=== PATIENT | male | born 1945 | race Caucasian/White ===

== ENCOUNTER 2016-04-05 19:45 | Inpatient (IN) | payer OTHER, MEDICARE ==
[~2016-04-05] VITALS: Ht 172.7 cm; Wt 81.6 kg
--- NOTE | 2016-04-05 19:53 | NUR ---
70 YEAR OLD MALE BIBA FROM HOME C/O CHEST PAIN. PER EMS PT HAS HISTORY OF A FIB, APPEARS TO BE IN NSR AT THIS TIME. PT RECEIVED 1 ASPIRIN 325MG AND 1 NITRO SL WITH GOOD EFFECT. PT DENIES CHEST PAIN AT THIS TIME.
[2016-04-05] MEDS ORDERED: PRILOSEC OTC20 M1 PO (20:32)
[2016-04-05] MEDS ORDERED: LISINOPRIL2.5 M1 PO (20:33)
[2016-04-05] MEDS ORDERED: LIPITOR80 M1 PO (20:34)
[2016-04-05] MEDS ORDERED: AMARYL4 M1 PO (20:34)
[2016-04-05] MEDS ORDERED: FLOMAX0.4 M1 PO (20:35)
[2016-04-05] MEDS ORDERED: ACTOS30 M1 PO (20:35)
[2016-04-05] MEDS ORDERED: COUMADIN5 M2 PO (20:40)
[2016-04-05] MEDS ORDERED: COUMADIN10 M1 PO (20:40)
[2016-04-05 20:41] LABS: ABSOLUTE BASOPHIL COUNT 0 /CUMM (0.0-0.2); ABSOLUTE EOSINOPHIL COUNT 0.2 /CUMM (0.0-0.7); ABSOLUTE GRANULOCYTE CT 3.8 /CUMM (1.4-6.5); ABSOLUTE LYMPH COUNT 2.8 /CUMM (1.2-3.4); ABSOLUTE MONOCYTE COUNT 0.6 /CUMM (0.10-0.60); BASOPHIL % 0.6 % (0.0-2.0); EOSINOPHIL % 2.9 % (0-5); HEMATOCRIT 39.4 % (42-52); MEAN CORPUSCULAR HGB 29.7 PG (27.0-31.0); MEAN CORPUSCULAR VOLUME 87.2 FL (80.0-94.0); PLATELET COUNT 181 /CUMM (130-400); RBC DISTRIBUTION WIDTH 14.1 % (11.5-14.5); RED BLOOD CELL CT 4.52 /CUMM (4.70-6.10); WHITE BLOOD CELL COUNT 7.4 /CUMM (4.8-10.8)
--- NOTE | 2016-04-05 20:42 | ED CARDIAC/CP/PALPITATIONS ---
History of Present Illness General Chief Complaint: General Adult Stated Complaint: BIBA, CHEST DISCOMFORT Source: patient, old records Exam Limitations: no limitations Allergies Coded Allergies: Sulfa (Sulfonamide Antibiotics) (PER PT WAS TOLD A KID 04/05/16) Reconcile Medications Atorvastatin Calcium (Lipitor) 80 MG TABLET 1 TAB PO DAILY CHOLESTEROL ( Reported) Glimepiride (Amaryl) 4 MG TABLET 1 TAB PO BID DM (Reported) Lisinopril 2.5 MG TABLET 1 TAB PO DAILY BP (Reported) Omeprazole Magnesium (Prilosec Otc) 20 MG TABLET.DR 1 TAB PO DAILY GI ( Reported) Pioglitazone HCl (Actos) 30 MG TABLET 1 TAB PO DAILY DM (Reported) Tamsulosin HCl (Flomax) 0.4 MG CAP.ER.24H 1 CAP PO DAILY PROSTATE (Reported) Warfarin Sodium (Coumadin) 5 MG TABLET 1 TAB PO AD BLOOD THINNER (Reported) Warfarin Sodium (Coumadin) 10 MG TABLET 1 TAB PO AD BLOOD THINNER (Reported) Triage Note: 70 YEAR OLD MALE BIBA FROM HOME C/O CHEST PAIN. PER EMS PT HAS HISTORY OF A FIB, APPEARS TO BE IN NSR AT THIS TIME. PT RECEIVED 1 ASPIRIN 325MG AND 1 NITRO SL WITH GOOD EFFECT. PT DENIES CHEST PAIN AT THIS TIME. Triage Nurses Notes Reviewed? yes HPI: 70/M with PMH of A.fib, CAD, HLD, HTN, T2DM, GERD, sarcoidosis, and abdominal aortic aneurysm, thyroid nodule, vascular disease and Bilateral renal artery stenting who presented to [place] ED complaining of 10/10, sharp, stabbing, continuous left-sided chest pain that started 2 hours ago and getting worse. Pain is radiating to the left arm. Pain is associated with lightheadedness and dyspnea. Patient denies history of similar pain in the past. Patient stated that his pain went down to 0/10 after he received the nitroglycerin. Patient denies cough, fever, chills, palpitation, nausea, vomiting, or abdominal pain. Patient has a bag of his medication which is not including any rate control medication. 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 ([facility] Vital Signs & Intake/Output Vital Signs & Intake/Output Vital Signs Date Time Temp Pulse Resp B/P Pulse O2 O2 Flow FiO2 Ox Delivery Rate 04/06 0200 97 Nasal 2.0L Cannula 04/06 0157 07 Nasal 2.0L Cannula 04/06 0113 96.6 82 18 134/77 95 Nasal 2.0L Cannula 04/06 0100 97.1 81 20 120/70 97 Nasal 2.0L Cannula 04/05 2338 96.3 80 18 141/75 97 Room Air 04/05 2227 98.4 83 18 140/74 04/05 2212 98.4 83 18 136/74 96 Room Air 04/05 1951 98.8 97 18 116/79 95 Room Air ED Intake and Output 04/06 0000 04/05 1200 Intake Total 1000 Output Total Balance 1000 Intake, IV 1000 Past History Travel History Traveled to [place] past 21 day No Psychosocial History Who do you live with Patient/Self Services at Home None What is your primary language Hebrew (DAYLIN ATKINSON,ISCTIL) Medical History Any Pertinent Medical History? see below for history Cardiovascular: AFIB Endocrine: diabetes Surgical History Surgical History: non-contributory Family History Hx Contributory? No (ASHANTI DOMINGUEZ MD) Review of Systems Review of Systems Constitutional: Reports: see HPI. Cardiovascular: Reports: chest pain. Denies: peripheral edema. (DAYLIN ATKINSON,ISMAIL) Review of Systems Constitutional: Reports: no symptoms. EENTM: Reports: no symptoms. Respiratory: Reports: no symptoms. Cardiovascular: Reports: see HPI. GI: Reports: no symptoms. Genitourinary: Reports: no symptoms. Musculoskeletal: Reports: no symptoms. Skin: Reports: no symptoms. Neurological/Psychological: Reports: no symptoms. Hematologic/Endocrine: Reports: no symptoms. Immunologic/Allergic: Reports: no symptoms. All Other Systems: Reviewed and Negative (ASHANTI DOMINGUEZ MD) Physical Exam Physical Exam General Appearance: well developed/nourished, no apparent distress, alert, awake Head: atraumatic, normal appearance Eyes: Bilateral: normal appearance, PERRL, EOMI. Neck: normal inspection Respiratory: normal breath sounds, chest non-tender, no respiratory distress, lungs clear Cardiovascular: regular rate/rhythm Gastrointestinal: normal bowel sounds, soft, non-tender (DAYLIN ATKINSON,ISMAIL) Physical Exam Ears, Nose, Throat: normal pharynx, normal ENT inspection Peripheral Pulses: 4+ carotid (R), 4+ carotid (L) Back: normal inspection, normal range of motion Extremities: normal inspection, normal capillary refill, normal range of motion, no edema Neurologic/Psych: no motor/sensory deficits, awake, alert, oriented x 3, normal gait, normal mood/affect Reflexes: 2+: bicep (R), bicep (L). Skin: intact, normal color, warm/dry Lymphatic: no anterior cervical turner Core Measures ACS in differential dx? Yes Severe Sepsis Present: No Septic Shock Present: No (ANGELICA ATKINSON,ASHANTI) Progress Differential Diagnosis: atrial fibrillation, pneumonia, ACS Initial ED EKG: no ST T wave changes, P WAVE IS WIDER THAN 3 SMALL BOXES., VA INTERVAL PROLONGED WITH NO BEAT DROPS (DAYLIN ATKINSON,ISCTIL) Plan of Care: Orders Procedure Date/time Status Heart Healthy Diet 04/06 B Active TROPONIN LEVEL 04/06 1000 Active EKG 04/06 1000 Active ECHOCARDIOGRAM 04/06 0800 Active TROPONIN LEVEL 04/06 0400 Active PROTHROMBIN TIME 04/06 0400 Active PHOSPHORUS 04/06 0400 Active MAGNESIUM 04/06 0400 Active LIPID PANEL 04/06 0400 Active CBC WITHOUT DIFFERENTIAL 04/06 0400 Active BASIC ELECTROLYTES PLUS BUN&CR 04/06 0400 Active EKG 04/06 0400 Active Vital Signs 04/06 0127 Active Teach/Educate 04/06 012 Active Nutritional Intake, Monitor 04/06 126 Active Isolation 04/06 012 Active Intake & Output 04/06 012 Active Patient Care Conference 04/06 0127 Active Activity/Ambulation 04/06 0127 Active Pathway - chart 04/06 0011 Active Pathway - chart 04/06 0009 Active House Staff 04/06 0009 Active Patient Data 04/06 0009 Active Code Status 04/06 0009 Active Lab Add-on Test 04/06 UNK Active VTE Mechanical Prophylaxis 04/06 UNK Active Telemetry/Quality Assurance Assessor 04/06 UNK Complete Patient Data 04/05 2214 Active OXYGEN SETUP (GEN) 04/05 2137 Active Saline Lock 04/05 2137 Active Admit to inpatient 04/05 2137 Active Vital Signs 04/05 2137 Active Activity/Ambulation 04/05 2137 Active Code Status 04/05 2137 Complete EKG 04/05 2045 Active GLYCOSYLATED HGB 04/05 2030 Active Telemetry/Quality Assurance Assessor 04/05 2024 Active TSH REFLEX 04/05 2024 Complete TROPONIN LEVEL 01/12 2025 Complete PROTHROMBIN TIME 04/05 2024 Complete COMPREHENSIVE METABOLIC PANEL 04/05 2024 Complete CBC WITHOUT DIFFERENTIAL 04/05 2024 Complete Intake & Output 04/05 1952 Active Current Medications Sig/Claudia Start time Last Medication Dose Stop Time Status Admin Atorvastatin Calcium 80 MG DAILY 04/06 1000 AC (Lipitor) Lisinopril 2.5 MG DAILY 04/06 1000 AC (Prinivil) Tamsulosin HCl 0.4 MG 0830 04/06 0830 AC (Flomax) Omeprazole 20 MG DAILY AC 04/06 0700 AC (Prilosec) Laboratory Tests 04/05/162030: Hemoglobin A1c Pending 04/05/162030: Anion Gap 14, Estimated GFR > 60, BUN/Creatinine Ratio 18.9, Glucose 290 H, Calcium 8.5, Total Bilirubin 0.6, AST 39, ALT 44, Alkaline Phosphatase 61, Troponin I < 0.01, Total Protein 6.3, Albumin 3.3 L, Globulin 3.0, Albumin/ Globulin Ratio 1.1, TSH &T3 &Free T4 Intrp 3.160, PT 27.2 H, INR 2.62 H, CBC w Diff NO MAN DIFF REQ, RBC 4.52 L, MCV 87.2, MCH 29.7, RDW 14.1, MPV 9.0, Gran % 51.0, Lymphocytes % 37.6, Monocytes % 7.9, Eosinophils % 2.9, Basophils % 0.6, Absolute Granulocytes 3.8, Absolute Lymphocytes 2.8, Absolute Monocytes 0.6, Absolute Eosinophils 0.2, Absolute Basophils 0, PUBS MCHC 34.0 Microbiology 04/06 0129 UPPER RESP: Surveillance Culture - CAN Cancelled: Cancelled via OE: PT REFUSED Patient has a history of atrial fibrillation, hypertension, hyperlipidemia, diabetes. Patient is a high risk for acute coronary syndrome. His symptoms started while he was at rest and responded well to nitroglycerin. Her first EKG and troponins was within normal limits however acute coronary syndrome needs to be ruled out with serial EKG and troponin. Patient reported feeling dizzy and short of breath with the pain, so different arrhythmia including A. fib need to be ruled out by monitoring the heartrate. Patient is on warfarin and his INR is in the therapeutic range it makes pulmonary embolism unlikely. (DAYLIN ATKINSON,ISCTIL) Diagnostic Imaging: Viewed by Me: Radiology Read. Discussed w/RAD: Radiology Read. CXR Impression: no acute abnormality, no infiltrates (ASHANTI DOMINGUEZ MD) Departure Departure Referrals: JULY LONDONO MD (PCP/Family) Departure Forms: Customer Survey General Discharge Information (DAYLIN ATKINSON,[facility]) Departure Time of Disposition: 2138 Disposition: STILL A PATIENT Condition: Stable Clinical Impression Primary Impression: ACS (acute coronary syndrome) Secondary Impressions: A-fib Qualifiers: Atrial fibrillation type: chronic Qualified Code: I48.2 - Chronic atrial fibrillation Admission Note Spoke With: JACQUELINE RACHEL MD Documentation of Exam: Documentation of any treatments & extenuating circumstances including Concerns Regarding Discharge (functional status, medication knowledge or non-compliance, living conditions, etc.) that warrant an admission rather than observation: Cardiac monitoring serial EKG serial lab exam medication adjustment cardiology evaluation continuing care discharge planning Resident Co-Sign Statement Statement: ED Attending supervision documentation- x I saw and evaluated the patient. I have also reviewed all the pertinent lab results and diagnostic results. I agree with the findings and the plan of care as documented in the Resident's documentation. [] I have reviewed the ED Record and agree with the Resident's documentation. [] Additions or exceptions (if any) to the Resident's note and plan are summarized below: [] (ASHANTI DOMINGUEZ MD) Critical Care Note Critical Care Note Critical Care Time: non-applicable (ASHANTI DOMINGUEZ MD)
[2016-04-05 20:46] LABS: PT 27.2 SEC (9.4-12.5)
--- NOTE | 2016-04-05 21:34 | RADIOLOGY REPORT ---
EXAMINATION: XR PORTABLE CHEST CLINICAL INFORMATION: 70-year-old male patient with chest pain. History of sarcoidosis. COMPARISON: Chest x-ray performed on 04/29/2014. TECHNIQUE: AP semierect view of the chest. FINDINGS: The heart is normal in size considering the AP projection. Lung volumes are low particularly in the right chest with slight elevation of the right hemidiaphragm. There is consequently platelike linear atelectasis of the right lower lobe. There is no convincing evidence of airspace disease or pleural effusion. As on the previous exam, there is no significant lymphadenopathy. IMPRESSION: No consolidating pneumonia.
--- NOTE | 2016-04-05 22:27 | History & Physical ---
SUZANNA ATKINSON,[facility] [place] 04/05/16 2225: General Information and HPI MD Statement: I have seen and personally examined AJITH THURMAN and documented this H&P. The patient is a 70 year old M who presented with a patient stated chief complaint of chest pain. Source of Information: patient, old records Exam Limitations: no limitations History of Present Illness: 70 y/o M with PMHx of AAA s/p EVAR, paroxysmal atrial fibrillation, CAD s/p stent placement, sarcoidosis, HLD, HTN and PVD who presents to the ED with acute onset sharp chest pain. Pain started 5-6 hours prior to current presentation while patient was sitting in recliner watching TV. It is located on the left side of his chest with radiation down his left arm, "stabbing in quality" and 9- 10 out of 10 in terms of severity. He had 4 episodes, each lasting about 5 seconds, at home which prompted him to call EMS. En route to the ED, he received 1 dose of aspirin and sublingual nitroglycerin. He had a single episode of chest pain in the ED, which was milder compared to the previous episodes, with the pain rating only 5 out of 10. Between the episodes, he feels "heaviness" in his chest. He denies shortness of breath, palpitations, nausea, diaphoresis associated with the episodes. Patient denies prior episodes of chest pain. Patient endorses dyspnea after going up 1-2 stairs which he attributes to sarcoidosis. He denies neck pain, abdominal pain, leg swelling, orthopnea or PND. Allergies/Medications Allergies: Coded Allergies: Sulfa (Sulfonamide Antibiotics) (PER PT WAS TOLD A KID 04/05/16) Home Med list Aspirin (Aspirin*) 81 MG TAB.CHEW 1 TAB PO DAILY HEART Atorvastatin Calcium (Lipitor) 80 MG TABLET 1 TAB PO DAILY CHOLESTEROL ( Reported) Omeprazole Magnesium (Prilosec Otc) 20 MG TABLET.DR 1 TAB PO DAILY GI ( Reported) Tamsulosin HCl (Flomax) 0.4 MG CAP.ER.24H 1 CAP PO DAILY PROSTATE (Reported) Past History Travel History Traveled to [place] past 21 day No Medical History Cardiovascular: aortic aneurysm, AFIB, CAD, hypertension, hyperlipidemia, PVD Respiratory: sarcoidosis Endocrine: diabetes Surgical History Surgical History: cardiac stent placement, EVAR Past Family/Social History Psychosocial History Services at Home: None Smoking Status: Former Smoker (Quit Smoking in Early ) ETOH Use: denies use Illicit Drug Use: denies illicit drug use Living Will? yes Functional Ability Ambulation: independent Employment History Employment Retired Profession/Employer Worked in [employer] Review of Systems Review of Systems Constitutional: Denies: chills, fever. EENTM: Denies: blurred vision. Cardiovascular: Reports: chest pain. Denies: orthopena, palpitations, peripheral edema. Respiratory: Denies: short of breath. GI: Denies: abdominal pain, nausea, vomiting. Genitourinary: Reports: no symptoms. Musculoskeletal: Reports: no symptoms. Skin: Reports: no symptoms. Neurological/Psychological: Reports: no symptoms. Hematologic/Endocrine: Reports: no symptoms. Immunologic/Allergic: Reports: no symptoms. All Other Systems: Reviewed and Negative Exam & Diagnostic Data Last 24 Hrs of Vital Signs/I&O Vital Signs Date Time Temp Pulse Resp B/P Pulse O2 O2 Flow FiO2 Ox Delivery Rate 04/05 2338 96.3 80 18 141/75 97 Room Air 04/05 2227 98.4 83 18 140/74 04/05 2212 98.4 83 18 136/74 96 Room Air 04/05 1951 98.8 97 18 116/79 95 Room Air Intake & Output 04/06 0800 04/06 0000 04/05 1600 Intake Total 1000 Output Total Balance 1000 Intake, IV 1000 Physical Exam General Appearance Alert, Oriented X3, No Acute Distress HEENT Mucous Membr. moist/pink, Oropharynx Clear Without Erythema or Exudates, No Conjunctival Pallor, Black Macule on the Right Eye Lower Palpebral Conjunctiva (Chronic Per Patient) Neck No JVD Cardiovascular Regular Rate, Normal S1, Normal S2, No Murmurs, Gallops, Rubs Lungs Clear to Auscultation, Normal Air Movement Abdomen Soft, No Tenderness, Positive Bowel Sounds Neurological No Gross Focal Deficits Noted Extremities No Clubbing, No Cyanosis, No Edema Vascular DP Pulses 2+ Bilaterally Last 24 Hrs of Labs/Luis Felipe: Laboratory Tests 04/05/162030: Anion Gap 14, Estimated GFR > 60, BUN/Creatinine Ratio 18.9, Glucose 290 H, Calcium 8.5, Total Bilirubin 0.6, AST 39, ALT 44, Alkaline Phosphatase 61, Troponin I < 0.01, Total Protein 6.3, Albumin 3.3 L, Globulin 3.0, Albumin/ Globulin Ratio 1.1, TSH &T3 &Free T4 Intrp 3.160, PT 27.2 H, INR 2.62 H, CBC w Diff NO MAN DIFF REQ, RBC 4.52 L, MCV 87.2, MCH 29.7, RDW 14.1, MPV 9.0, Gran % 51.0, Lymphocytes % 37.6, Monocytes % 7.9, Eosinophils % 2.9, Basophils % 0.6, Absolute Granulocytes 3.8, Absolute Lymphocytes 2.8, Absolute Monocytes 0.6, Absolute Eosinophils 0.2, Absolute Basophils 0, PUBS MCHC 34.0 Diagnostic Data EKG Results NSR HR 87 1st degree AV block NH [address]-T wave abnormalities CXR Results No consolidating pneumonia. Other Results CTA CHEST - AORTIC DISSECTION: 1. No evidence of aortic dissection. 2. No acute pulmonary findings. Multiple chronic findings including emphysema and scarring. Stable pulmonary nodules. 3. Redemonstration of a nodule in the right lobe of the thyroid gland. If not previously performed, this could be further evaluated by ultrasound. Assessment/Plan Assessment: 70 y/o M with PMHx of AAA s/p EVAR, paroxysmal atrial fibrillation and CAD s/p stent placement who presents with acute onset chest pain. #Chest pain: Most likely unstable angina given his history of CAD. Initial set of troponins negative and EKG with no ST-T wave abnormalities. Concerning for vascular pathology including aortic dissection given history of AAA but CTA Chest was unremarkable. S/p 5 mg of IV metoprolol and nitroglycerin patch. * Cardiology consulted. Appreciate their recs. * Serial EKGs and troponin. * Continuous telemetry monitoring. * ECHO ordered. * Continue home atorvastatin 80 mg PO QD. * Check lipid panel. * Daily low-dose aspirin. #T2DM: On glimepiride 4 mg PO QD and pioglitazone 30 mg PO QD. * Hold oral hypoglycemic agents while inpatient. * Accu-checks and low-dose Novolog SSI TIDAC. #Paroxysmal atrial fibrillation: Patient is rate-controlled without any medications and on warfarin for anti-coagulation. INR 2.62. * Continue prior to admission warfarin. * Monitor INR and dose warfarin to keep INR between 2 and 3. #Thyroid nodule: CTA Chest with a probable nodule in the R lobe of the thyroid gland, also present on prior CT from July 2014. * Patient will need outpatient follow-up for further evaluation of thyroid nodule. #HTN: * Prior to admission lisinopril 2.5 mg PO QD discontinued. * Start beta-gato in the AM. Appreciate cardiology input on dosing. #BPH: * Continue home tamsulosin 0.4 mg PO QD. Diet: Heart Healthy DVT PPx: Warfarin and ALPs CODE: FULL As Ranked By This Provider Problem List: 1. CAD 2. Abdominal aortic aneurysm 3. Chest pain 4. Dyslipidemia 5. Sarcoidosis 6. T2DM (type 2 diabetes mellitus) 7. Paroxysmal atrial fibrillation 8. Endoleak post (EVAR) endovascular aneurysm repair 9. Unstable angina 10. Thyroid nodule 11. BPH (benign prostatic hyperplasia) Core Measures/Miscellaneous Acute Coronary Syndrome ACS Diagnosis: Yes ASA W/I 24hr of admit Yes Beta-Gato W/I 24hrs Yes LDL assessed W/I 24 hrs Yes Currently on Statin Yes Cerebrovascular Accident CVA/TIA Diagnosis: No Congestive Heart Failure CHF Diagnosis: No Venous Thromboembolism VTE Risk Factors: Acute medical illness, Age > 40 VTE Prophylaxis Ordered Inpt: Mech & Pharm No Mech VTE prophylaxis d/t: No contraindications No VTE Pharm Prophylaxis d/t: No contraindications VTE Diagnosis: No VTE Type: NONE VTE Confirmed by (Test): NONE Severe Sepsis Severe Sepsis Present: No Septic Shock Septic Shock Present: No Miscellaneous Documentation Attending Case Discussed With: JACQUELINE RACHEL MD Primary Care Physician: JULY LONDONO MD Patient sees these Specialists Acupuncturist: Ajith Rosa MD Filament Tester: Olivia Burrows MD Level of Patient Care: Telemetry WILLIE ISSA 04/06/16 0222: Resident Review Statement Resident Statement: examined this patient, discussed with grad intern, agreed with grad intern, discussed with family, reviewed EMR data (avail), discussed with case mgmt, reviewed images Other Findings: Mr Thurman is a 70-year-old gentleman with a PMH of A. fib on Coumadin, CAD s/p drug-eluting stent placement to the LAD (2010), abdominal aneurysm, HTN, HLD, previous tobacco use, sarcoidosis, thyroid nodule who presents with complaints of sudden onsetleft-sided chest pain that started while watching TV. He describes this as a sharp, 10/10, lasting a few seconds with intermittent chest heaviness over his left chest and left arm associated with dizziness and some dyspnea. He had a total of 4 such episodes prior to calling EMS. In route to the ER he received 1 dose ASA and sublingual NTG. On arrival in the ED he had 1 more episode with no recurrence after Nitro-Bid application. At his baseline he gets short of breath after climbing 2 flights of steps. He denies any palpitations, previous episodes of chest pain, orthopnea, PND or lower extremity swelling. Patient's PCP (Dr. Londono), cabinet professional (is Dr. Rosa), directory assistance operator (Dr. Burrows) VS on admission: BP 116/79, HR 97, RR 18, SPO2 98% on RA, T 98.8 PE: Alert setting of acute distress. Mucous membranes pink and moist. No JVD, RRR, normal S1/S2, 2/6 systolic murmur. Lungs CTA BL. Normal bowel sounds. No evidence of pitting edema in LE Pertinent labs: H&H 13.4/39.4, potassium 4.1, BUN/CR 17/0.9, glucose 290 INR: 2.62 Troponin: <0.01 CXR: No consolidative pneumonia Chest CTA: No evidence of dissection. Multiple chronic findings including emphysema and scarring. Stable pulmonary nodules. Her menstruation of a nodule in the right lobe of thyroid gland. Problem list: 1. Unstable angina 2. Atrial fibrillation 3. CAD S/P stent placement 4. Hypertension 5. Hyperlipidemia Plan: * Admit to telemetry for continuous cardiac monitoring. Serial EKGs: 0400, 1000hrs * CTA chest no evidence of dissection. We'll administer 1 L NS to avoid contrast nephropathy * Echocardiogram in the a.m. Cardiology consult with Dr. Rosa. We'll continue the patient on lisinopril 2.5 mg, atorvastatin 80 mg. Discuss with cardiology in the a.m. for the utility and starting the patient on low-dose metoprolol tartrate as BP tolerates * INR 2.62. Follow-up INR in the a.m. dose Coumadin accordingly * Lipid panel in the a.m. * Follow-up hemoglobin A1c in the a.m. * DVT prophylaxis: Coumadin * Heart healthy * CODE STATUS: Full code JACQUELINE RACHEL 04/06/16 0301: Attending MD Review Statement Attending Statement Attending MD Statement: examined this patient, discuss w/resident/PA/GRIEF COUNSELLOR, agreed w/resident/PA/GRIEF COUNSELLOR, reviewed EMR data (avail), reviewed images, amended to note Attending Assessment/Plan: CC : Chest pain PMH: Paroxysmal A. fib, CAD status post LAD stent, HTN, DM, sarcoidosis, restrictive lung disease, thyroid nodule, AAA status post aortobiiliac stent with bilateral renal stents Patient started to notice chest pain 4 hr before arrival to ED, started at rest when he was watching television. It's left-sided, 9/10 in intensity, sharp stabbing, radiating to left arm, lasted for few seconds then resolved. Patient had 4 such episodes. In between the sharp chest pain patient had chest heaviness. Patient was also noticing dizziness associated with episodes of chest pain so he called EMS. He received aspirin and nitroglycerin on the way, improved after that. No SOB, palpitations, fever, chills, cough with expectorations, leg swelling. At baseline patient has KLINE, NYHA class II, blames it to restrictive lung disease. Patient does not recall any recent stress test or echocardiogram. His recent CT abdomen and pelvis angiogram was done 6 months back to follow-up for AAA stent. Vitals: Afebrile, heart rate in 80s, RR 18, BP in acceptable range. Saturating well on room air. On exam: A O 3, no acute distress, no JVD, neck supple, no lymphadenopathy, mucosa moist, and there is blackish discoloration in the right eye lower palpebral conjunctiva (chronic according to him, negative for malignancy). CVS: S1-S2, RRR. RS: Clear air entry bilaterally. Abdomen: Soft, NT , ND, bowel sounds present. No focal neurological deficit. No dependent edema. Peripheral perfusion normal. Labs: CBC, BMP, LFT unremarkable except glucose 290. INR 2.6, troponin less than 0.01, TSH 316. CXR: No evidence of pneumonia. CTA:No acute pulmonary or vascular findings. Multiple chronic findings including emphysema and scarring. Stable pulmonary nodules. right lobe of the thyroid gland. EKG: First-degree heart block, no evidence of A. fib currently. A and P: #1 ? Unstable angina: Patient has history of coronary artery disease, pain started at rest, radiating to left side, no obvious EKG changes, no elevated troponin. Continue telemetry monitoring, trend troponin, serial EKGs. Patient received a dose of metoprolol, aspirin in ER. Currently having Nitropatch. Consult cardiology in a.m. CTA was obtained to rule out any vascular pathology, (given his extensive vascular history) Which was unremarkable. Continue aspirin, atorvastatin. ? DC lisinopril and start beta gato: According to cardiology. #2 DM: Hold glimepiride and pioglitazone, continue sliding scale low-dose insulin. #3 paroxysmal A. fib: Continue warfarin, patient's rate is controlled without any medications. #4 Thyroid nodule: Will need outpatient follow-up. #5 DVT prophylaxis: Patient on therapeutic warfarin. Continue his home doses. Adequate pain control.
--- NOTE | 2016-04-05 22:27 | NUR ---
PT MEDICATED PER EMAR. PT REPORTS SLIGHT CHEST PAIN 2/10 THAT COMES AND GOES.
--- NOTE | 2016-04-05 22:48 | NUR ---
PT HAS BED ASSIGNMENT 103 TELEMETRY OVERFLOW
--- NOTE | 2016-04-05 23:03 | NUR ---
PT REPORTS NO CHEST PAIN AT THIS TIME. BP 146/73 WITH NITRO PASTE ON. CONTINUES NSR ON THE MONITOR IN THE 80'S.
--- NOTE | 2016-04-06 00:06 | NUR ---
PT EVALUATED BY HOUSE STAFF. IV LINE #20G INSERTED ON LFA. VITAL SINGS STABLE. DENIES CHEST PAIN. DENIES SOB. RESTING COMFORTABLY WITH O2 SATURTION 97% ON 2L NC.
[2016-04-06 01:00] VITALS: BP 120/70
--- NOTE | 2016-04-06 01:16 | NUR ---
ATTEMPTED TO GIVE REPORT. RN WILL CALL BACK.
--- NOTE | 2016-04-06 01:22 | NUR ---
REPORT CALLED TO CHARLES RITTER
--- NOTE | 2016-04-06 01:27 | CT SCAN REPORT ---
EXAMINATION: CT ANGIOGRAM CHEST-AORTIC DISSECTION CLINICAL INFORMATION: Sudden onset of left-sided chest pain COMPARISON: Radiograph from 04/05/2016. CT from 06/16/2014. TECHNIQUE: Initial noncontrast CT of the chest was performed. This was followed by multidetector volumetric imaging of the chest after administration of 115 mL of Optiray 350 IV contrast. Coronal, sagittal, and three-dimensional/MIP reformatted imaging was performed and reviewed. FINDINGS: Vascular: 1. There is a 3 cusped aortic valve. Normal origins of the main coronary arteries. Coronary artery calcifications are present. 2. The ascending thoracic aorta is normal in course and caliber without dissection. 3. Aortic arch is normal in course and caliber without dissection. The arch vessels are unremarkable proximally. 4. The descending thoracic aorta is normal in course and caliber without evidence of dissection. Scattered atherosclerotic calcification noted. 5. There is no evidence of central, lobar, or segmental pulmonary embolism. Nonvascular: The central airways are patent. There is moderate centrilobular emphysema noted. Biapical pleural parenchymal scarring is present. Redemonstration of 0.4 cm nodules along the right minor fissure, unchanged. 3 nodules in total are seen, remaining stable and suggestive of a benign etiology. Stable postsurgical changes of the right lower lobe with nodular opacity. Mild bilateral reticular changes are also chronic and stable. No pneumothorax or pleural effusion. The heart is normal in size. No pericardial effusion. No mediastinal lymphadenopathy. Partial visualization of a probable nodule in the right lobe of the thyroid gland, although artifact limits the visualization. This is better seen on the prior CT. No axillary lymphadenopathy or chest wall mass. Visualized portion of the upper abdomen is unremarkable. No acute or suspicious osseous abnormality. Mild degenerative changes of the spine. DISH. IMPRESSION: 1. No evidence of aortic dissection. 2. No acute pulmonary findings. Multiple chronic findings including emphysema and scarring. Stable pulmonary nodules. 3. Redemonstration of a nodule in the right lobe of the thyroid gland. If not previously performed, this could be further evaluated by ultrasound.
--- NOTE | 2016-04-06 01:38 | NUR ---
[facility] Nurse Note by: ERLINDA DELGADO. I agree with the ACCOUNTS RECEIVABLE REPRESENTATIVE findings/evaluation of this patient's condition. Entered by: ERLINDA DELGADO. Date: 04/06/16 Time: 4744
--- NOTE | 2016-04-06 02:07 | NUR ---
ADMITTED A 70 YEAR OLD MALE WHO CAME IN BECAUSE OF CHEST PAIN. PT WAS GIVEN ASA AND NTG ON THE AMBULANCE. IN THE ER THE PT WAS GIVEN LOPRESSOR 5MG IV AND NTG 1/2 INCH. TROPONIN WAS NEGATIVE X 1. 1ST DEGREE AVB 80'S MANUAL BP 120/70. DENIES CHEST PAIN ON ARRIVAL IN ICU.
--- NOTE | 2016-04-06 03:03 | Admission Certification ---
Admission Certification Certification Statement - As attending physician, I certify that at the time of - admission, based on clinical presentation, severity of - symptoms, need for further diagnostic testing and - therapeutic interventions, and risk of adverse outcomes - without in-hospital treatment, in my clinical assessment, - this patient requires an acute hospital stay for a minimum - of two nights or longer. I have also considered psychsocial - factors such as support system, advanced age, financial - issues, cognitive issues, and failed out-patient treatments, - past re-admission history, safety of patient, and lack of - compliance as applicable. Specific rationale supporting this admission is: Chest pain probably secondary to unstable angina
[2016-04-06 04:57] LABS: ABSOLUTE BASOPHIL COUNT 0 /CUMM (0.0-0.2); ABSOLUTE EOSINOPHIL COUNT 0.2 /CUMM (0.0-0.7); ABSOLUTE GRANULOCYTE CT 3.2 /CUMM (1.4-6.5); ABSOLUTE LYMPH COUNT 2.7 /CUMM (1.2-3.4); ABSOLUTE MONOCYTE COUNT 0.5 /CUMM (0.10-0.60); BASOPHIL % 0.4 % (0.0-2.0); EOSINOPHIL % 3.6 % (0-5); GRANULOCYTE % 48.1 % (42.2-75.2); HEMATOCRIT 37.6 % (42-52); MEAN CORPUSCULAR HGB 29.5 PG (27.0-31.0); MEAN CORPUSCULAR HGB CONC 33.9 G/DL (33.0-37.0); MEAN CORPUSCULAR VOLUME 86.9 FL (80.0-94.0); MEAN PLATELET VOLUME 9.1 FL (7.4-10.4); PLATELET COUNT 170 /CUMM (130-400); PT 24.2 SEC (9.4-12.5); RBC DISTRIBUTION WIDTH 14.5 % (11.5-14.5); RED BLOOD CELL CT 4.32 /CUMM (4.70-6.10); WHITE BLOOD CELL COUNT 6.6 /CUMM (4.8-10.8)
[2016-04-06 08:00] VITALS: BP 110/76
--- NOTE | 2016-04-06 10:44 | PN- Housestaff ---
DREW DOMÍNGUEZ MD 04/06/16 1044: Subjective Follow-up For: Chest pain Subjective: Patient seen and examined. He is seen sitting upright in his bed resting comfortably. Overnight he reports another episode of chest pain characterized as 2-3 located in the left chest wall that quickly subsided with rest. He denies any other complaints such as sweating, dizziness, or nausea at that time. Additionally he denies any headache, fever, chills, palpitations, shortness breath, vomiting, diarrhea. No other overnight events reported other than above. Review of Systems Constitutional: Reports: see HPI. Objective Last 24 Hrs of Vital Signs/I&O Vital Signs Date Time Temp Pulse Resp B/P Pulse O2 O2 Flow FiO2 Ox Delivery Rate 04/06 0416 97 Nasal 3.0L Cannula 04/06 0200 97 Nasal 2.0L Cannula 04/06 0157 07 Nasal 2.0L Cannula 04/06 0113 96.6 82 18 134/77 95 Nasal 2.0L Cannula 04/06 0100 97.1 81 20 120/70 97 Nasal 2.0L Cannula 04/05 2338 96.3 80 18 141/75 97 Room Air 04/05 2227 98.4 83 18 140/74 04/05 2212 98.4 83 18 136/74 96 Room Air 04/05 1951 98.8 97 18 116/79 95 Room Air Intake & Output 04/06 1600 04/06 0800 04/06 0000 Intake Total 500 1000 Output Total Balance 500 1000 Intake, IV 300 1000 Intake, Oral 200 Patient 81.647 kg Weight Physical Exam General Appearance: Alert, Oriented X3, Cooperative, No Acute Distress Other Physical Findings: General - well developed, well nourished elderly man in no acute distress HEENT - NCAT, PERRL, EOMI, anicteric sclera Cardio - S1, S2 w/o murmurs/gallops/rubs Resp - CTA bilaterally w/o wheezing/rhochi/crackles GI - soft, nontender, nondistended, bowel sounds present Neuro - Awake and alert, CN II - XII grossly intact Extremities - no edema, pulses intact Current Medications: Current Medications Sig/Claudia Start time Last Medication Dose Route Stop Time Status Admin Aspirin 81 MG DAILY 04/06 1000 AC 04/06 PO 1111 Atorvastatin Calcium 80 MG DAILY 04/06 1000 AC PO Lisinopril 2.5 MG DAILY 04/06 1000 CAN PO Magnesium Oxide 400 MG ONE ONE 04/06 0630 DC 04/06 PO 04/06 0631 0647 Magnesium Oxide 400 MG ONE ONE 04/06 0630 DC 04/06 PO 04/06 0631 0647 Magnesium Oxide 400 MG Q2 04/06 0600 DC PO 04/06 0801 Metoprolol Tartrate 0 .STK-MED ONE 04/05 2205 DC IV Metoprolol Tartrate 5 MG ONCE ONE 04/05 2114 DC 04/05 IV 04/05 Nitroglycerin 0 .STK-MED ONE 04/05 2205 DC TOP Nitroglycerin 0.5 GM ONCE ONE 04/05 2114 DC 04/05 TOP 04/05 Omeprazole 20 MG DAILY AC 04/06 0700 AC 04/06 PO 0647 Sodium Chloride 1,000 ML Q13H 04/06 0245 AC 04/06 IV 04/06 1544 0256 Tamsulosin HCl 0.4 MG 0830 04/06 0830 AC PO Last 24 Hrs of Lab/Luis Felipe Results Last 24 Hrs of Labs/Mics: Laboratory Tests 04/06/16 1025: Troponin I Pending 04/06/16 0400: Anion Gap 13, Estimated GFR > 60, BUN/Creatinine Ratio 21.4, Phosphorus 3.6, Magnesium 1.4 L, Troponin I < 0.01, Triglycerides 187 H, Cholesterol 139, LDL Cholesterol, Calc 76, HDL Cholesterol 26 L, Cholesterol/HDL Ratio 5 H, PT 24.2 H, INR 2.32 H, CBC w Diff NO MAN DIFF REQ, RBC 4.32 L, MCV 86.9, MCH 29.5, RDW 14.5, MPV 9.1, Gran % 48.1, Lymphocytes % 40.2, Monocytes % 7.7, Eosinophils % 3.6, Basophils % 0.4, Absolute Granulocytes 3.2, Absolute Lymphocytes 2.7, Absolute Monocytes 0.5, Absolute Eosinophils 0.2, Absolute Basophils 0, PUBS MCHC 33.9 04/05/162030: Hemoglobin A1c Pending 04/05/162030: Anion Gap 14, Estimated GFR > 60, BUN/Creatinine Ratio 18.9, Glucose 290 H, Calcium 8.5, Total Bilirubin 0.6, AST 39, ALT 44, Alkaline Phosphatase 61, Troponin I < 0.01, Total Protein 6.3, Albumin 3.3 L, Globulin 3.0, Albumin/ Globulin Ratio 1.1, TSH &T3 &Free T4 Intrp 3.160, PT 27.2 H, INR 2.62 H, CBC w Diff NO MAN DIFF REQ, RBC 4.52 L, MCV 87.2, MCH 29.7, RDW 14.1, MPV 9.0, Gran % 51.0, Lymphocytes % 37.6, Monocytes % 7.9, Eosinophils % 2.9, Basophils % 0.6, Absolute Granulocytes 3.8, Absolute Lymphocytes 2.8, Absolute Monocytes 0.6, Absolute Eosinophils 0.2, Absolute Basophils 0, PUBS MCHC 34.0 Microbiology 04/06 0129 UPPER RESP: Surveillance Culture - CAN Cancelled: Cancelled via OE: PT REFUSED Assessment/Plan Assessment: Other than the minor episode of chest pain overnight patient reports feeling well and has no complaints. He was evaluated by cardiology this morning and given his extensive cardiac and vascular medical history it was determined that patient should be evaluated with a cardiac catheterization. INR was found to be therapeutic and is to be reversed with 1 unit of fresh frozen plasma prior to transfer to [facility] for the procedure. Consent was obtained and placed in chart. Chest pain: Patient with an extensive cardiac/vascular medical history seen for acute onset chest pain at rest relieved with nitroglycerin. Troponin/EKG trended 3 were negative/unchanged. CTA negative for dissection or PE. Case discussed with her literacy consultant and it was determined patient may potentially benefit from a cardiac catheterization should this event be of cardiac etiology. INR was found to be therapeutic as patient was on Coumadin for atrial fibrillation. This is to be reversed with 1 unit of fresh frozen plasma prior to transfer. Consent obtained and placed in chart. He is to be heparinized at the receiving hospital per Cardiology recommendations. -1 unit FFP to reverse INR 2.32, consent on chart -Aspirin 81mg PO -Cardiology consult -Transfer to [facility] for Cardiac cath History of Paroxysmal Atrial Fibrillation - stable, NSR, INR reversed for procedure CAD s/p stent - reportedly no longer on aspirin as he in on coumadin HTN - stable, monitor VS Hyperlipidemia - Atorvastatin 80mg PO daily GERD - stable, Omeprazole 20mg PO Daily BPH - Floxmax 0.4mg PO Daily AAA s/p EVAR -stable, hx of stent Diet - NPO DVT PPx - ALPS Code Status - FULL CODE Problem List: 1. Chest pain Pain Ratin Pain Location: Chest Pain Goal: Pain 7 or less Pain Plan: Nitroglycerin Tomorrow's Labs & Rationales: None Discharge Plan Discharge Disposition: transfer to another hosp Stable for Discharge? Yes Anticipated Discharge (Day): today TERRI ATKINSON,TALIA 04/06/16 1333: Attending MD Review Statement Attending Statement Attending MD Statement: examined this patient, discuss w/resident/PA/MILLWRIGHT HELPER, agreed w/resident/PA/MILLWRIGHT HELPER, reviewed EMR data (avail), discussed with nursing, discussed with case mgmt Attending Assessment/Plan: 70-year-old male past medical history of diabetes, hypertension, aortic aneurysm repair with stent, emphysema and known coronary artery disease, A. fib on Coumadin who came in with episode of chest pain relieved with nitroglycerin. He has ruled out with serial enzymes and EKG. Appreciate Dr. Rosa's evaluation who feels that given his risk factors and the fact that it was releived with nitroglycerin, have to transfer him for an urgent cardiac cath.
--- NOTE | 2016-04-06 11:09 | Discharge Summary ---
Visit Information Visit Dates Admission Date: 04/05/16 Discharge Date: 04/06/16 Hospital Course Course Attending Physician: TALIA MURRAY MD. Primary Care Physician: JULY LONDONO MD Other Care Providers: Dr. Rosa Hospital Course: He is 70-year-old man with past medical history of Paroxysmal A. fib on Coumadin , CAD status post LAD stent, HTN, DM, sarcoidosis, restrictive lung disease, thyroid nodule, AAA status post aortobiiliac stent with bilateral renal stents in 2011 presented to [place] [facility] with chief complaint of intermittent chest pain. Patient started to notice chest pain 4 hr before arrival to ED, started at rest when he was watching television. It's left-sided, 9/10 in intensity, sharp stabbing, radiating to left arm, lasted for few seconds then resolved. Patient had 4 such episodes. In between the sharp chest pain patient had chest heaviness. Patient was also noticing dizziness associated with episodes of chest pain so he called EMS. He received aspirin and nitroglycerin on the way, improved after that. No SOB, palpitations, fever, chills, cough with expectorations, leg swelling. ED course: Vitals: Afebrile, heart rate in 80s, RR 18, BP in acceptable range. Saturating well on room air. On Exam: A O 3, no acute distress, no JVD, neck supple, no lymphadenopathy, mucosa moist, and there is blackish discoloration in the right eye lower palpebral conjunctiva (chronic according to him, negative for malignancy). CVS: S1-S2, RRR. RS: Clear air entry bilaterally. Abdomen: Soft, NT, ND, bowel sounds present. No focal neurological deficit. No dependent edema. Peripheral perfusion normal. Labs: CBC, BMP, LFT unremarkable except glucose 290. INR 2.6, troponin less than 0.01, TSH 316. CXR: No evidence of pneumonia. CTA:No acute pulmonary or vascular findings. Multiple chronic findings including emphysema and scarring. Stable pulmonary nodules. right lobe of the thyroid gland. EKG: First-degree heart block, no evidence of A. fib. Patient was admitted on telemetry floor to rule out coronary artery disease. Patient was still having intermittent, sharp, nonradiating left-sided chest pain lasting for a few seconds. He was seen by Dr. Rosa, criminal analyst. Second and third troponins came back negative with no acute ST-T wave changes on EKG. Dr. Rosa decided to transfer this patient to [facility] for cardiac cath given his extensive cardiac history and chest pain initially relieved with nitroglycerin. Patient was made nothing by mouth right after and he was given 1 unit of FFP to bring INR down as repeat INR was 2.32. His magnesium was low ( 1.4) in the morning and that was repleted. Echocardiogram pending. Upon discharge from [facility] we are continuing his omeprazole, atorvastatin, Flomax and holding his lisinopril, glimepiride, pioglitazone and Coumadin for now. We have started him on aspirin 81 mg daily. Allergies: Coded Allergies: Sulfa (Sulfonamide Antibiotics) (PER PT WAS TOLD A KID 04/05/16) Disposition Summary Disposition Principal Diagnosis: rule out ACS Additional Diagnosis: none [facility] Discharge Instructions General Discharge Information Code Status: Full Code Patient's Diet: Currently nothing by mouth Patient's Activity: Independent Follow-Up Instructions/Appts: 1. Please follow up with her primary care provider within one week after discharge 2. Please follow-up with your criminal analyst within 1 week after discharge Medications at Discharge Discharge Medications: Stop taking the following medications: Lisinopril (Lisinopril) 2.5 MG TABLET ORAL DAILY Glimepiride (Amaryl) 4 MG TABLET ORAL TWICE DAILY Pioglitazone HCl (Actos) 30 MG TABLET ORAL DAILY Warfarin Sodium (Coumadin) 5 MG TABLET ORAL As Directed Warfarin Sodium (Coumadin) 10 MG TABLET ORAL As Directed Continue taking these medications: Omeprazole Magnesium (Prilosec Otc) 20 MG TABLET.DR 1 Tablet ORAL DAILY Comments: PER PT Atorvastatin Calcium (Lipitor) 80 MG TABLET 1 Tablet ORAL DAILY Comments: PER PT MED BOTTLE Tamsulosin HCl (Flomax) 0.4 MG CAP.ER.24H 1 Capsule ORAL DAILY Comments: PER PT MED BOTTLE Start taking the following new medications: Aspirin (Aspirin*) 81 MG TAB.CHEW 1 Tablet ORAL DAILY Qty = 90 No Refills Copies To: SPRING ATKINSON,JULY Prakash
--- NOTE | 2016-04-06 11:28 | Patient Discharge Instructions ---
Discharge Instructions General Discharge Information You were seen/treated for: Chest pain Special Instructions: 1. Please follow-up with your primary care provider within one week after discharge 2. Please follow-up with Dr. Rosa within 1 week after discharge Diet Recommended Diet: NPO for now Activity Full Activity/No Limits: Yes Acute Coronary Syndrome Inclusion Criteria At DC or during hospital stay patient has or had the following: ACS DIAGNOSIS No Discharge Core Measures Meds if any: Prescribed or Continued at Discharge Meds if any: NOT Prescribed or Continued at Discharge Congestive Heart Failure Inclusion Criteria At DC or during hospital stay patient has or had the following: CHF DIAGNOSIS No Discharge Core Measures Meds if any: Prescribed or Continued at Discharge Meds if any: NOT Prescribed or Continued at Discharge Cerebrovascular accident Inclusion Criteria At DC or during hospital stay patient has or had the following: CVA/TIA Diagnosis No Discharge Core Measures Meds if any: Prescribed or Continued at Discharge Meds if any: NOT Prescribed or Continued at Discharge Venous thromboembolism Inclusion Criteria VTE Diagnosis No VTE Type NONE VTE Confirmed by (Test) NONE Discharge Core Measures - Per Current guidelines, there needs to be overlap - treatment for the first 5 days of Warfarin therapy. - If discharged on Warfarin prior to 5 days of - overlap therapy, the patient will need to be - assessed for post discharge needs including - *Post discharge parental anticoagulation - *Warfarin and/or parental anticoagulation education - *Follow up date to check INR post discharge At least 5 days overlap therapy as Inpatient No Meds if any: Prescribed or Continued at Discharge Note: Overlap Therapy is Warfarin and Anticoagulant Meds if any: NOT Prescribed or Continued at Discharge
[2016-04-06] MEDS ORDERED: ASPIRIN81 M4 PO (15:04)
--- NOTE | 2016-04-06 16:32 | Cons- Cardiology ---
General Information and HPI Consulting Request Date of Consult: 04/06/16 Requested By: TALIA MURRAY MD Reason for Consult: Chest pain syndrome consistent with unstable angina Source of Information: patient, old records History of Present Illness: 70 y/o M with PMHx of AAA s/p EVAR, paroxysmal atrial fibrillation, CAD s/p stent placement, sarcoidosis, HLD, HTN and PVD who presents to the ED with acute onset sharp chest pain. Pain started 5-6 hours prior to current presentation while patient was sitting in recliner watching TV. It is located on the left side of his chest with radiation down his left arm, "stabbing in quality" and 9- 10 out of 10 in terms of severity. He had 4 episodes, each lasting about 5 seconds, at home which prompted him to call EMS. En route to the ED, he received 1 dose of aspirin and sublingual nitroglycerin. According to the patient, the TNG completely relieved his discomfort within a minute/ He had a single episode in the ED, which was milder compared to the previous episodes, with the pain rating only 5 out of 10. Between the episodes, he feels "heaviness" in his chest. He also had another episode early this morning. He denies shortness of breath, palpitations, nausea, diaphoresis associated with the episodes. Patient denies prior episodes of chest pain. Patient endorses dyspnea after going up 1-2 stairs which he attributes to sarcoidosis. He denies neck pain, abdominal pain, leg swelling, Allergies/Medications Allergies: Coded Allergies: Sulfa (Sulfonamide Antibiotics) (PER PT WAS TOLD A KID 04/05/16) Home Med List: Aspirin (Aspirin*) 81 MG TAB.CHEW 1 TAB PO DAILY HEART Atorvastatin Calcium (Lipitor) 80 MG TABLET 1 TAB PO DAILY CHOLESTEROL ( Reported) Omeprazole Magnesium (Prilosec Otc) 20 MG TABLET.DR 1 TAB PO DAILY GI ( Reported) Tamsulosin HCl (Flomax) 0.4 MG CAP.ER.24H 1 CAP PO DAILY PROSTATE (Reported) Past History Travel History Traveled to [place] past 21 day No Medical History Cardiovascular: aortic aneurysm, AFIB, CAD, hypertension, hyperlipidemia, PVD Respiratory: sarcoidosis Renal: benign prost hyperplasia Endocrine: diabetes Surgical History Surgical History: cardiac stent placement EVAR Psychosocial History Services at Home: None Smoking Status: Former Smoker (Quit Smoking in Early ) ETOH Use: denies use Illicit Drug Use: denies illicit drug use Living Will? yes Functional Ability Ambulation: independent Employment History Employment: Retired Profession/Employer Worked in [employer] Exam & Diagnostic Data Vital Signs and I&O Vital Signs Date Time Temp Pulse Resp B/P Pulse O2 O2 Flow FiO2 Ox Delivery Rate 04/06 0800 97.2 65 20 110/76 97 Nasal 2.0L Cannula 04/06 0416 97 Nasal 3.0L Cannula 04/06 0200 97 Nasal 2.0L Cannula 04/06 0157 07 Nasal 2.0L Cannula 04/06 0113 96.6 82 18 134/77 95 Nasal 2.0L Cannula 04/06 0100 97.1 81 20 120/70 97 Nasal 2.0L Cannula 04/05 2338 96.3 80 18 141/75 97 Room Air 04/05 2227 98.4 83 18 140/74 04/05 2212 98.4 83 18 136/74 96 Room Air 04/05 1951 98.8 97 18 116/79 95 Room Air Intake & Output 04/06 1600 04/06 0800 04/06 0000 04/05 1600 04/05 0800 04/05 0000 Intake Total 7018 006 7756 Output Total Balance 6368 932 9639 Intake, Blood 250 Product Intake, IV 781 048 3777 Intake, Oral 240 200 Patient 180 lb Weight Physical Exam: General Appearance Alert, Oriented X3, No Acute Distress HEENT Mucous Membr. moist/pink, Oropharynx Clear Without Erythema or Exudates, No Conjunctival Pallor, Black Macule on the Right Eye Lower Palpebral Conjunctiva, Chronic Per Patient Neck No JVD Cardiovascular Regular Rate, Normal S1, Normal S2, No Murmurs, Gallops, Rubs Lungs Clear to Auscultation, Normal Air Movement Abdomen Soft, No Tenderness, Positive Bowel Sounds Extremities No Clubbing, No Cyanosis, No Edema Vascular DP Pulses 2+ Bilaterally Labs/Luis Felipe Results: Laboratory Tests 04/06 04/06 04/05 1025 0400 2031 Chemistry Sodium (137 - 145 mmol/L) 137 Potassium (3.5 - 5.1 mmol/L) 4.0 Chloride (98 - 107 mmol/L) 99 Carbon Dioxide (22 - 30 mmol/L) 25 Anion Gap (5 - 16) 13 BUN (9 - 20 mg/dL) 15 Creatinine (0.7 - 1.2 mg/dL) 0.7 Estimated GFR (>60 ml/min) > 60 BUN/Creatinine Ratio (7 - 25 %) 21.4 Hemoglobin A1c Pending Phosphorus (2.5 - 4.5 mg/dL) 3.6 Magnesium (1.6 - 2.3 mg/dL) 1.4 L Troponin I (<0.11 ng/ml) < 0.01 < 0.01 Triglycerides (<150 mg/dL) 187 H Cholesterol (< 200 MG/DL) 139 LDL Cholesterol, Calc (65 - 129 mg/dL) 76 HDL Cholesterol (40 - 60 mg/dL) 26 L Cholesterol/HDL Ratio (0.00 - 4.88 %) 5 H Coagulation PT (9.4 - 12.5 SEC) 24.2 H INR (0.90 - 1.17) 2.32 H Hematology CBC w Diff NO MAN DIFF REQ WBC (4.8 - 10.8 /CUMM) 6.6 RBC (4.70 - 6.10 /CUMM) 4.32 L Hgb (14.0 - 18.0 G/DL) 12.7 L Hct (42 - 52 %) 37.6 L MCV (80.0 - 94.0 FL) 86.9 MCH (27.0 - 31.0 PG) 29.5 RDW (11.5 - 14.5 %) 14.5 Plt Count (130 - 400 /CUMM) 170 MPV (7.4 - 10.4 FL) 9.1 Gran % (42.2 - 75.2 %) 48.1 Lymphocytes % (20.5 - 51.1 %) 40.2 Monocytes % (1.7 - 9.3 %) 7.7 Eosinophils % (0 - 5 %) 3.6 Basophils % (0.0 - 2.0 %) 0.4 Absolute Granulocytes (1.4 - 6.5 /CUMM) 3.2 Absolute Lymphocytes (1.2 - 3.4 /CUMM) 2.7 Absolute Monocytes (0.10 - 0.60 /CUMM) 0.5 Absolute Eosinophils (0.0 - 0.7 /CUMM) 0.2 Absolute Basophils (0.0 - 0.2 /CUMM) 0 PUBS MCHC (33.0 - 37.0 G/DL) 33.9 04/05 2030 Chemistry Sodium (137 - 145 mmol/L) 137 Potassium (3.5 - 5.1 mmol/L) 4.1 Chloride (98 - 107 mmol/L) 98 Carbon Dioxide (22 - 30 mmol/L) 26 Anion Gap (5 - 16) 14 BUN (9 - 20 mg/dL) 17 Creatinine (0.7 - 1.2 mg/dL) 0.9 Estimated GFR (>60 ml/min) > 60 BUN/Creatinine Ratio (7 - 25 %) 18.9 Glucose (65 - 99 mg/dL) 290 H Calcium (8.4 - 10.2 mg/dL) 8.5 Total Bilirubin (0.2 - 1.3 mg/dL) 0.6 AST (17 - 59 U/L) 39 ALT (21 - 72 U/L) 44 Alkaline Phosphatase (< 127 U/L) 61 Troponin I (<0.11 ng/ml) < 0.01 Total Protein (6.3 - 8.2 g/dL) 6.3 Albumin (3.5 - 5.0 g/dL) 3.3 L Globulin (1.9 - 4.2 gm/dL) 3.0 Albumin/Globulin Ratio (1.1 - 2.2 %) 1.1 TSH &T3 &Free T4 Intrp (0.27 - 4.20 uIU/mL) 3.160 Coagulation PT (9.4 - 12.5 SEC) 27.2 H INR (0.90 - 1.17) 2.62 H Hematology CBC w Diff NO MAN DIFF REQ WBC (4.8 - 10.8 /CUMM) 7.4 RBC (4.70 - 6.10 /CUMM) 4.52 L Hgb (14.0 - 18.0 G/DL) 13.4 L Hct (42 - 52 %) 39.4 L MCV (80.0 - 94.0 FL) 87.2 MCH (27.0 - 31.0 PG) 29.7 RDW (11.5 - 14.5 %) 14.1 Plt Count (130 - 400 /CUMM) 181 MPV (7.4 - 10.4 FL) 9.0 Gran % (42.2 - 75.2 %) 51.0 Lymphocytes % (20.5 - 51.1 %) 37.6 Monocytes % (1.7 - 9.3 %) 7.9 Eosinophils % (0 - 5 %) 2.9 Basophils % (0.0 - 2.0 %) 0.6 Absolute Granulocytes (1.4 - 6.5 /CUMM) 3.8 Absolute Lymphocytes (1.2 - 3.4 /CUMM) 2.8 Absolute Monocytes (0.10 - 0.60 /CUMM) 0.6 Absolute Eosinophils (0.0 - 0.7 /CUMM) 0.2 Absolute Basophils (0.0 - 0.2 /CUMM) 0 PUBS MCHC (33.0 - 37.0 G/DL) 34.0 Diagnostic Data EKG Results NSR with NSSTTWCs CXR Results FINDINGS: The heart is normal in size considering the AP projection. Lung volumes are low particularly in the right chest with slight elevation of the right hemidiaphragm. There is consequently platelike linear atelectasis of the right lower lobe. There is no convincing evidence of airspace disease or pleural effusion. As on the previous exam, there is no significant lymphadenopathy. IMPRESSION: No consolidating pneumonia. Other Results CTA Chest: FINDINGS: Vascular: 1. There is a 3 cusped aortic valve. Normal origins of the main coronary arteries. Coronary artery calcifications are present. 2. The ascending thoracic aorta is normal in course and caliber without dissection. 3. Aortic arch is normal in course and caliber without dissection. The arch vessels are unremarkable proximally. 4. The descending thoracic aorta is normal in course and caliber without evidence of dissection. Scattered atherosclerotic calcification noted. 5. There is no evidence of central, lobar, or segmental pulmonary embolism. Nonvascular: The central airways are patent. There is moderate centrilobular emphysema noted. Biapical pleural parenchymal scarring is present. Redemonstration of 0.4 cm nodules along the right minor fissure, unchanged. 3 nodules in total are seen, remaining stable and suggestive of a benign etiology. Stable postsurgical changes of the right lower lobe with nodular opacity. Mild bilateral reticular changes are also chronic and stable. No pneumothorax or pleural effusion. The heart is normal in size. No pericardial effusion. No mediastinal lymphadenopathy. Partial visualization of a probable nodule in the right lobe of the thyroid gland, although artifact limits the visualization. This is better seen on the prior CT. No axillary lymphadenopathy or chest wall mass. Visualized portion of the upper abdomen is unremarkable. No acute or suspicious osseous abnormality. Mild degenerative changes of the spine. DISH. IMPRESSION: 1. No evidence of aortic dissection. 2. No acute pulmonary findings. Multiple chronic findings including emphysema and scarring. Stable pulmonary nodules. 3. Redemonstration of a nodule in the right lobe of the thyroid gland. If not previously performed, this could be furthe Assessment/Plan Assessment/Plan Assessment: 1. Chest pain syndrome; rule out ACS 2. History of CAD; stents 3. Sarcoidosis 4. S/P endovascular AAA repair 5. PAD 6. Elevated INR Recommendations: - COntinue regular meds - Keep the patient NPO - ONe unit FFP for INR reversal - Transfer to [facility] today for cardiac catheterization with Dr. Valentin - Further plans depending on the results of the Cath. Consult Acknowledgment - Thank you for your consult request.
--- NOTE | 2016-04-08 18:20 | ECHOCARDIOGRAM REPORT ---
ASTRID CURTIS Age: 70 : 1945 Gender: M Exam Date: 04/06/2016 11:31 Exam Location: [facility] Ht (in): 68 Wt (lb): 180 BSA: 2.00 BP: 120 / 70 Ordering Physician: Radames Quiros Referring Physician: Dudely Rosa MD Technologist: Paul Moe Room Number: [id number] Indications: CHEST PAIN Rhythm: Sinus Technical Quality: Fair FINDINGS Left Ventricle Normal size left ventricle. No obvious regional wall motion abnormalities. Normal left ventricular ejection fraction estimated at 55-60%. Right Ventricle Right ventricle not well visualized, grossly normal. Right Atrium Normal right atrial size. Left Atrium Left atrial size at the upper limits of normal. Mitral Valve Mitral valve thickened. Mild mitral annular calcification. Mild mitral regurgitation. Aortic Valve Trileaflet aortic valve. Diffuse thickening (sclerosis) of the aortic valve cusps without reduced excursion. No aortic stenosis. No aortic regurgitation. Tricuspid Valve Tricuspid valve is normal in structure and function. Mild tricuspid regurgitation. Pulmonic Valve Pulmonic valve not well visualized, grossly normal. Pericardium No pericardial effusion. Great Vessels Aortic root and proximal ascending aorta not well visualized, grossly normal. CONCLUSIONS 1. This was a technically difficult examination due to the patient's body habitus. 2. MIld to moderate aortic sclerosis is present with no valvualr stenosis or insufficiency. 3. Mitral leaflet thickening is present with mild anular calcification and mild mitral insufficiency. 4. THere is no pericardial fluid present. 5. The left ventricular chamber size is normal with a normal ejection fraction and no resting wall motion abnormalities. 6. Mild tricuspid insufficiency is present. The RV systolic pressure could not be accurately assessed. Dudley Rosa M.D. (Electronically Signed) Final Date: 08 April 2016 18:20 MEASUREMENTS (Male / Female) Normal Values 2D ECHO LV Diastolic Diameter PLAX 4.2 cm 4.2 - 5.9 / 3.9 - 5.3 cm LV Systolic Diameter PLAX 3.0 cm 2.1 - 4.0 cm LV Fractional Shortening PLAX 28.6 % 25 - 46 % LV Ejection Fraction 2D Teich 55.5 % IVS Diastolic Thickness 1.1 cm LVPW Diastolic Thickness 1.0 cm LV Relative Wall Thickness 0.5 LVOT Diameter 2.1 cm Aortic Root Diameter 3.6 cm LA Systolic Diameter LX 3.4 cm 3.0 - 4.0 / 2.7 - 3.8 cm LV Ejection Fraction MOD BP 61.1 % >= 55 % LV Diastolic Length 4C 8.0 cm 6.9 - 10.3 cm LV Diastolic Area 4C 31.0 cm LV Diastolic Volume MOD 4C 98.0 cm LV Ejection Fraction MOD 4C 56.1 % LV Stroke Volume MOD 4C 55.0 cm LV Systolic Length 4C 7.0 cm LV Systolic Area 4C 18.5 cm LV Systolic Volume MOD 4C 43.0 cm LV Ejection Fraction MOD 2C 63.3 % LV Diastolic Volume 4C AL 101.7 cm 85 - 139 / 69 - 109 cm LV Systolic Volume 4C AL 41.3 cm LV Ejection Fraction 4C AL 59.4 % LV Stroke Volume 4C AL 60.5 cm LV Ejection Fraction 2C AL 63.8 % LA Volume 57.0 cm 18 - 58 / 22 - 52 cm Ascending Aorta Diameter 3.3 cm DOPPLER AV Peak Velocity 146.0 cm/s AV Peak Gradient 8.5 mmHg AV Mean Velocity 101.0 cm/s AV Mean Gradient 5.0 mmHg AV Velocity Time Integral 35.9 cm LVOT Peak Velocity 86.5 cm/s LVOT Peak Gradient 3.0 mmHg LVOT Mean Velocity 56.2 cm/s LVOT Mean Gradient 2.0 mmHg LVOT Velocity Time Integral 21.0 cm LVOT Stroke Volume 72.7 cm AV Area Cont Eq vti 2.0 cm AV Area Cont Eq pk 2.1 cm MV Peak Velocity 81.6 cm/s MV Peak Gradient 2.7 mmHg MV Mean Velocity 52.4 cm/s MV Mean Gradient 1.0 mmHg Mitral E Point Velocity 76.8 cm/s Mitral A Point Velocity 52.1 cm/s Mitral E to A Ratio 1.5 MV PHT Velocity 84.2 cm/s MV Deceleration [place] 336.0 cm/s MV Pressure Half Time 75.2 ms MV Area PHT 2.9 cm MV Deceleration Time 151.0 ms TR Peak Velocity 206.0 cm/s TR Peak Gradient 17.0 mmHg PV Peak Velocity 89.9 cm/s PV Peak Gradient 3.2 mmHg PV Mean Velocity 61.0 cm/s PV Mean Gradient 2.0 mmHg PV Velocity Time Integral 21.0 cm LV E' Lateral Velocity 7.0 cm/s Mitral E to LV E' Lateral Ratio 10.9 LV E' Septal Velocity 6.7 cm/s Mitral E to LV E' Septal Ratio 11.4
== END 2016-04-06 15:15 | disposition short-term general hospital (02) | DRG 303 ==
LOC: ENRESERVTM → ENRESERVDT → ERH 19:45 → CRI 21:38 → ERHI 21:38 → CRI 22:14
PROVIDERS: Internal Medicine; Student in an Organized Health Care Education/Training Program; ADMIT Internal Medicine
DX: I25.110 Atherosclerotic heart disease of native coronary artery with unstable angina pectoris (principal); I48.0 Paroxysmal atrial fibrillation; E11.9 Type 2 diabetes mellitus without complications; I10 Essential (primary) hypertension; D86.9 Sarcoidosis, unspecified; I73.9 Peripheral vascular disease, unspecified; E04.1 Nontoxic single thyroid nodule; E78.5 Hyperlipidemia, unspecified; N40.0 Benign prostatic hyperplasia without lower urinary tract symptoms; Z87.891 Personal history of nicotine dependence; Z79.4 Long term (current) use of insulin
CPT/HCPCS: ERO; 36415; 82436; 93005; 93010; 93306; J3490